=== PATIENT | male | born 1995 | race Caucasian/White ===

== ENCOUNTER 2016-03-11 00:15 | Observation (INO) | payer BC ==
[~2016-03-11 00:15] MED LIST: Sodium Chloride 0.9% 1,000 ML IV ONE
[2016-03-11] MEDS ORDERED: Ondansetron 8 MG in Sodium Chloride 0.9% 100 ML IV ONE (00:20)
--- NOTE | 2016-03-11 00:39 | EDM.PDOC ---
ED HPI ALTERED MENTAL STATUS - General Chief Complaint: Drug or Alcohol Abuse Stated Complaint: INTOXICATED Time Seen by Provider: 03/11/16 00:15 Source of Information: Reports: Other (friends room mates ) History Limitations: Reports: Intoxication - History of Present Illness INITIAL COMMENTS - FREE TEXT/NARRATIVE: per friends pt was at [employer] for back to school drinking ? whiskey since ?7-8pm passed out on floor hard to wake up and vomitted while on his side was brought to ER after neg Injury , drugs ? etoh amount do not belive pt swallowed any vomit no medical issues PMHX Baseline Mental Status: Reports: alert/confused Symptom Onset Date: 03/11/16 Symptom Onset Time: 11:30 Context: Reports: drug/ETOH abuse Associated Symptoms: Denies: depression, previous similar episodes - Related Data Allergies/ADRs: Allergies No Known Allergies Allergy (Verified 03/11/16 00:33) Home Meds: Home Meds . [No Known Home Meds] 03/11/16 [History] Past Medical History HEENT History: Reports: None Cardiovascular History: Reports: None Respiratory History: Reports: None Gastrointestinal History: Reports: None Genitourinary History: Reports: None Musculoskeletal History: Reports: None Neurological History: Reports: None Psychiatric History: Reports: None Endocrine/Metabolic History: Reports: None Hematologic History: Reports: None Social & Family History - Alcohol Use Alcohol Use History: Yes ED ROS GENERAL - Review of Systems Review Of Systems: See Below (ROS some from pt some from friends PT GCS) Respiratory: Denies: shortness of breath, wheezing, cough Cardiovascular: Denies: Chest pain Endocrine: Denies: fatigue GI/Abdominal: Reports: Vomiting. Denies: Abdominal pain, Diarrhea Musculoskeletal: Reports: no symptoms (GCS 13-14 ) Skin: Reports: no symptoms Neurological: Denies: confusion, dizziness, headache, syncope Psychiatric: Reports: No symptoms Hematologic/Lymphatic: Reports: no symptoms - Physical Exam Exam: See Below Exam Limited By: Intoxication General Appearance: alert, WD/WN Eye Exam: bilateral eye: EOMI, PERRL (mild lat nystagmus blat ) Ears: normal external exam, normal TMs Throat/Mouth: Normal inspection, Normal gums Head Exam: atraumatic, normocephalic. No: scalp abrasions, scalp tenderness, facial abrasions, facial tenderness Neck: normal inspection, supple, non-tender, full range of motion Respiratory/Chest: no respiratory distress, lungs clear, normal breath sounds, no accessory muscle use. No: rhonchi, wheezing Cardiovascular: normal peripheral pulses, regular rate, rhythm, no edema, no gallop, no JVD, no rub GI/Abdominal: normal bowel sounds, soft, non tender, no organomegaly, no distention Neuro Exam (Abbreviated): alert, oriented, CN II-XII intact, normal reflexes Extremities: normal inspection, normal range of motion, normal capillary refill Psychiatric: normal affect Skin Exam: Warm, Dry, Intact Comments: pt pos gag reflex AOX 3 slow with some response follows all commands 5/5 ue le blat Course - Vital Signs Text/Narrative:: labs IV fluids zofran pt will be obs overnight till cleared in am neuro checks q 2 hrs x 3 sets pt rechecked in ER AOX 4 follows all commands patent airway Last Recorded V/S: Last Vital Signs Temp 36.2 C 03/11/16 10:00 Pulse 82 03/11/16 10:00 Resp 20 03/11/16 10:00 BP 114/64 03/11/16 10:00 Pulse Ox 99 03/11/16 10:00 - Orders/Labs/Meds Orders: Active Orders 24 hr Category Date Time Status Admission Status [Patient Status] [ADT] Routine ADT 03/11/16 01:06 Active Hernandez Catheter Insertion [Insert Urinary Catheter] [OM. Care 03/11/16 00:45 Ordered PC] Q24H Urinary Catheter Assessment [RC] 08, Care 03/11/16 00:37 Active Medication Orders Sodium Chloride (Normal Saline) 1,000 mls @ 120 mls/hr IV ASDIRECTED REPLACED BY [facility] Last Admin: 03/11/16 02:25 Dose: 120 mls/hr Ondansetron HCl (Zofran) 4 mg IVPUSH Q4H PRN PRN Reason: Nausea Labs: Laboratory Tests 03/11/16 03/11/16 03/11/16 Range/Units 00:49 00:50 00:50 WBC 6.5 (4.0-10.0) x10^3/uL RBC 5.01 (4.5-6.0) x10^6/uL Hgb 15.7 (14.0-18.0) g/dL Hct 44.5 (40.0-52.0) % MCV 88.8 (78.0-93.0) fL MCH 31.3 (26.0-32.0) pg MCHC 35.3 (32.0-36.0) g/dL RDW Coeff of Diaz 12.0 (10.0-15.0) % Plt Count 233 (130-400) x10^3/uL Neut % (Auto) 48.7 L (50.0-80.0) % Lymph % (Auto) 26.0 (25.0-50.0) % [place] % (Auto) 23.3 H (2.0-11.0) % Eos % (Auto) 1.5 (0.0-4.0) % Baso % (Auto) 0.5 (0.2-1.2) % Sodium 141 (136-145) mmol/L Potassium 3.4 L (3.5-5.1) mmol/L Chloride 103 (98-107) mmol/L Carbon Dioxide 27 (21-32) mmol/L BUN 9 (7-18) mg/dL Creatinine 0.8 (0.70-1.30) mg/dL Est Cr Clr Drug Dosing TNP Estimated GFR (MDRD) > 60 Glucose 112 H (74-106) mg/dL Calcium 7.7 L (8.5-10.1) mg/dL Corrected Calcium 7.70 L (8.5-10.1) mg/dL Total Bilirubin 0.2 (0.2-1.0) mg/dL AST 48 H (15-37) U/L ALT 72 H (16-63) U/L Alkaline Phosphatase 83 (46-116) U/L Total Protein 7.2 (6.4-8.2) g/dL Albumin 4.0 (3.4-5.0) g/dL Globulin 3.2 Albumin/Globulin Ratio 1.25 Urine Opiates Screen Negative (NEAGTIVE) Ur Buprenorphine Scrn Negative (NEGATIVE) Ur Oxycodone Screen Negative (NEGATIVE) Urine Methadone Screen Negative (NEGATIVE) Acetaminophen 0 L (10-30) ug/ml Ur Barbiturates Screen Negative (NEGATIVE) Ur Tricyclics Screen Negative (NEGATIVE) Ur Amphetamine Screen Negative (NEGATIVE) U Methamphetamines Scrn Negative (NEGATIVE) Urine MDMA Screen Negative (NEGATIVE) U Benzodiazepines Scrn Negative (NEGATIVE) U Cocaine Metab Screen Negative (NEGATIVE) U Marijuana (THC) Screen Negative (NEGATIVE) Ethyl Alcohol 413 H* (0-3) mg/dL Meds: Medications Generic Name Dose Route Start Last Admin Trade Name Freq PRN Reason Stop Dose Admin Sodium Chloride 1,000 mls @ 120 mls/hr 03/11/16 02:24 03/11/16 02:25 Normal Saline IV 120 mls/hr ASDIRECTED SUKHDEEP Administration Ondansetron HCl 4 mg 03/11/16 02:25 Zofran IVPUSH Q4H PRN Nausea Discontinued Medications Generic Name Dose Route Start Last Admin Trade Name Freq PRN Reason Stop Dose Admin Ondansetron HCl 8 mg/ Sodium 104 mls @ 400 mls/hr 03/11/16 00:20 03/11/16 00: 21 Chloride IV 03/11/16 00:35 400 mls/hr ONETIME ONE Administration Sodium Chloride 1,000 mls @ 999 mls/hr 03/11/16 00:15 03/11/16 00:17 Normal Saline IV 03/11/16 01:15 999 mls/hr .BOLUS ONE Administration Departure - Departure Time of Disposition: 01:30 Disposition: Admitted As Inpatient 65 Clinical Impression: ETOH abuse - Problem List & Annotations (1) ETOH abuse SNOMED Code(s): 39871716 Code(s): F10.10 - ALCOHOL ABUSE, UNCOMPLICATED Status: Acute Priority: High Current Visit: Yes - My Orders Last 24 Hours: My Active Orders 03/11/16 00:37 Urinary Catheter Assessment [RC] 03/11/16 00:45 Hernandez Catheter Insertion [Insert Urinary Catheter] [OM.PC] Q24H 03/11/16 01:06 Admission Status [Patient Status] [ADT] Routine - Assessment/Plan Admission H&P: Please use this note as an admission H&P Last 24 Hours: My Active Orders 03/11/16 00:37 Urinary Catheter Assessment [RC] 03/11/16 00:45 Hernandez Catheter Insertion [Insert Urinary Catheter] [OM.PC] Q24H 03/11/16 01:06 Admission Status [Patient Status] [ADT] Routine
[2016-03-11 00:55] LABS: BASOPHILS PERCENT AUTO 0.5 % (0.2-1.2); EOSINOPHILS PERCENT AUTO 1.5 % (0.0-4.0); HEMATOCRIT 44.5 % (40.0-52.0); HEMOGLOBIN 15.7 g/dL (14.0-18.0); MEAN CORPUSCULAR HEMOGLOBIN 31.3 pg (26.0-32.0); MEAN CORPUSCULAR HGB CONC 35.3 g/dL (32.0-36.0); MEAN CORPUSCULAR VOLUME 88.8 fL (78.0-93.0); NEUTROPHILS PERCENT AUTO 48.7 % (50.0-80.0); RED BLOOD CELL COUNT 5.01 x10^6/uL (4.5-6.0)
[2016-03-11 01:13] LABS: MONOCYTES PERCENT AUTO 23.3 % (2.0-11.0)
[2016-03-11 01:22] LABS: A/G RATIO 1.25; ALKALINE PHOSPHATASE 83 U/L (46-116); BILIRUBIN TOTAL 0.2 mg/dL (0.2-1.0); CALCIUM 7.7 mg/dL (8.5-10.1); CHLORIDE,CL 103 mmol/L (98-107); CREATININE 0.8 mg/dL (0.70-1.30); ESTIMATED GFR > 60; GLUCOSE RANDOM 112 mg/dL (74-106)
[2016-03-11 01:33] LABS: ACETAMINOPHEN 0 ug/ml (10-30)
[2016-03-11] MEDS ORDERED: Sodium Chloride 0.9% 1,000 ML IV SCH (02:24)
[2016-03-11] MEDS ORDERED: Ondansetron 4 MG/2 ML SDV IVPUSH PRN (02:25)
[2016-03-11 10:33] VITALS: BP 114/64
--- NOTE | 2016-03-11 11:21 | PCM.DCSUM1 ---
Discharge Summary - Hospital Course Free Text/Narrative:: uneventful through the night pt this am AOX4 [id number] /le plan to DC this am - Discharge Data Discharge Date: 03/11/16 Discharge Disposition: Home, Self-Care 01 Condition: Good - Discharge Diagnosis/Problem(s) (1) ETOH abuse SNOMED Code(s): 01315107 ICD Code: F10.10 - ALCOHOL ABUSE, UNCOMPLICATED Status: Acute Priority: High Current Visit: Yes - Patient Instructions Diet: Usual Diet as Tolerated - Discharge Plan Home Medications: Home Meds . [No Known Home Meds] 03/11/16 [History] - Patient Data Vitals - Most Recent: Last Vital Signs Temp 36.2 C 03/11/16 10:00 Pulse 82 03/11/16 10:00 Resp 20 03/11/16 10:00 BP 114/64 03/11/16 10:00 Pulse Ox 99 03/11/16 10:00 Weight - Most Recent: 72.575 kg I&O - Last 24 hours: Intake & Output 03/10/16 03/11/16 03/11/16 22:59 06:59 14:59 Intake Total 0 0 Output Total 1075 Balance -1075 0 Med Orders - Current: Current Medications Sodium Chloride (Normal Saline) 1,000 mls @ 120 mls/hr IV ASDIRECTED [facility] Last Admin: 03/11/16 02:25 Dose: 120 mls/hr Ondansetron HCl (Zofran) 4 mg IVPUSH Q4H PRN PRN Reason: Nausea Discontinued Medications Ondansetron HCl 8 mg/ Sodium (Chloride) 104 mls @ 400 mls/hr IV ONETIME ONE Stop: 03/11/16 00:35 Last Admin: 03/11/16 00:21 Dose: 400 mls/hr Sodium Chloride (Normal Saline) 1,000 mls @ 999 mls/hr IV .BOLUS ONE Stop: 03/11/16 01:15 Last Admin: 03/11/16 00:17 Dose: 999 mls/hr *Q Meaningful Use (DIS) - VTE *Q VTE Criteria *Q: - Stroke *Q Stroke Criteria *Q: - AMI *Q AMI Criteria *Q:
== END 2016-03-11 11:45 | disposition home or self-care (01) ==
LOC: VM.ED 00:15 → VM.MS 01:10
PROVIDERS: ADMIT Physician Assistant Medical; ATTEND Physician Assistant Medical
DX: F10.10 Alcohol abuse, uncomplicated (principal)
CPT/HCPCS: 36415; 51702; 80053; 80305; 85025; 96361; 96374; 99285; G0378; G0479; G0480; J2405; J7030; J7050